=== PATIENT | female | born 1995 | race Caucasian/White ===

== ENCOUNTER 2019-11-17 13:30 | Outpatient (RCR) | payer OTHER, SELFPAY ==
--- NOTE | 2019-11-03 16:32 | PTOPEVAL ---
Thank you for referring Carline Palacio to [facility] [place]Note 2]. Please review, sign, date and return this plan of care LAKHWINDER. Pt referred to therapy due to chronic pes planovalgus deformity with chronic ankle sprains. Initial evaluation performed via telehealth. She demonstrates decreased balance, posture and gait impairments with LE/foot position, and increased pain with walking activities. She would benefit from skilled therapy services to instruct in a HEP, improve functional mobility and decrease pain with daily act. Cont PT 1x/wk x 4-6 wk for on-site and telehealth visits. I agree with and certify that the following plan of care is medically necessary. Referring Physician Date Referring Provider: Dr. Clarissa Díaz MD *PT Outpatient Evaluation Start: 11/03/19 15:31 Freq: Status: Active Protocol: Document 11/03/19 15:32 CAP (Rec: 11/03/19 16:19 CAP [id number]) Therapy Assessment Status Assessment Status Assessment Status Evaluation Outpatient Past Medical History Past Medical History Source of Past Medical History Patient,Recalled from Previous Visit, Confirmed with Patient /Family Respiratory History Hx Asthma Yes Gastrointestinal History Hx Irritable Bowel Yes Hx Other Gastrointestinal Disorders Yes: Gastoparesis Musculoskeletal History Hx Other Musculoskeletal Disorders Yes: multiple Lt ankle surgeries Evaluation Information Problem Diagnosis pes planovalgus right M21.41 Onset Jun 2019 Additional Evaluation Detail she had PT for 6 months for left ankle then surgery for calcaneal osteotomy in 10/30. Subjective Information Pt reports she is walking when Query Text:As Reported By Patient/ her right ankle will twist Family out causing increased pain. States this will happen 3x/wk. This will happen when walking inside, outside or with community mobility. She has a history of her left foot twisting in the past. She has had 3 surgeries on her left foot. States she lacks normal sensation on her left foot. She had glass on her left foot the other day and was unaware until she saw blood. She is wearing Nike shoes with custom inserts that are < 1 year old. But will often wear flip flops for convenience. She has velcro OTS ankle
--- NOTE | 2019-11-17 13:46 | PCPTNOTE ---
Patient did not show up for scheduled appointment this date, clerical staff stated with reminder call patient stated she wanted to do telehealth appointments when called back to schedule those appointment had to leave voicemail which clerical has not heard back from patient.
--- NOTE | 2019-12-06 13:13 | PCPTNOTE ---
Admitting Provider: Attending Provider: PHYSICIAN NOT ON STAFF Patient:Carline Palacio Date of :1995 Discharge Note Patient has not returned for any further treatments since 11/11/2019, therefore she will be discharged at this time. Patient?s initial visit was on 11/03/2019 15:00 and she had a total of 2 visits. The goals have been not been met due to limited visits attended. Thank you for referring this patient to [facility]. Please review, sign, date and return this discharge summary LAKHWINDER. I have been updated about the patient's current status and I agree with discharge from the above service at this time. Referring Physician Date
== END 2019-12-06 15:43 | disposition home or self-care (01) ==
LOC: ANHPT 13:30
DX: M21.41 Flat foot [pes planus] (acquired), right foot (principal)
CPT/HCPCS: 97110; 97161

== ENCOUNTER 2019-11-20 14:10 | Emergency (ER) | payer OTHER, SELFPAY ==
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
[2019-11-20 14:28] VITALS: BP 125/64; PULSE 90; RESP 16; TEMP 37.1
== END 2019-11-20 14:51 | disposition home or self-care (01) ==
PROVIDERS: Emergency Provider Nurse Practitioner Family
DX: L55.0 Sunburn of first degree (principal)
CPT/HCPCS: 99213; G0463

== ENCOUNTER 2019-11-24 16:54 | Emergency (ER) | payer OTHER, SELFPAY ==
[2019-11-24 17:34] VITALS: BP 131/80; PULSE 68; RESP 16; TEMP 36.4; O2SAT 100
--- NOTE | 2019-11-24 17:51 | ED.GENADULT ---
HPI - General Adult General Chief complaint: Skin/Abscess/Foreign Body Stated complaint: sunburn Time Seen by Provider: 11/24/19 17:51 Source: patient and RN notes reviewed Mode of arrival: ambulatory Limitations: no limitations and clinical condition History of Present Illness HPI narrative: 23-year-old female presents with complaints of infected sunburn wound to chest wall for 1 day. Carline says a co-worker told her to go see her doctor because she has an infection to her sunburn area. Complains of tenderness, erythema. Denies or swelling to area. Denies drainage. No streaking, Denies fever or chills. Remains active. LMP, 2 weeks ago. The patient reports she have not been diagnosed with COVID-19. The patient reports she is not waiting for the results of a COVID-19 lab test. The patient reports she do not have fever, chills, weakness, fatigue, myalgia, or facial swelling. The patient reports she do not have a new or worsening cough or shortness of breath. Denies chest pain. The patient reports she do not have any rhinorrhea, congestion, sore throat, nausea, vomiting, abdominal pain, and diarrhea. Tolerating po intake well. Denies concerns for COVID-19 or exposures been home with limited outdoor exposure except for essential household needs, work, and return home. At this time, patient is not suspected of having COVID-19. Some parts of this dictation were generated by voice recognition software and may contain typographical and/or grammatical inaccuracies. Related Data Home Medications Medication Instructions Recorded Confirmed albuterol sulfate 06/12/19 buspirone mg 06/12/19 citalopram mg 06/12/19 budesonide-formoterol [Symbicort] 2 puff INHALATION Q12H 07/07/19 07/07/19 amitriptyline 11/20/19 meloxicam 11/20/19 Allergies Allergy/AdvReac Type Severity Reaction Status Date / Time shrimp Allergy Intermediate HIVES Verified 06/12/19 10:17 gabapentin Allergy Unknown Rash Verified 07/07/19 11:06 Review of Systems Review of Systems: Narrative: CONSTITUTIONAL: Denies fever, chills, sweats. EYES: Denies visual changes, redness, discharge. ENT: Denies rhinorrhea, congestion, sore throat, otalgia. CARDIOVASCULAR: Denies chest pain, palpitations, edema. RESPIRATORY: Denies dyspnea, wheezing, cough GASTROINTESTINAL: Denies abdominal pain, nausea, vomiting, diarrhea. GENITOURINARY: Denies dysuria, hematuria, abnormal discharge SKIN: Complains of infection to chest wall sunburn. Complains of erythema and tenderness. Denies drainage. MUSCULOSKELETAL: Denies acute back pain, joint pain, or myalgia. NEUROLOGIC: Denies numbness or focal weakness. PSYCHIATRIC: Denies anxiety or depression. All other systems reviewed & are unremarkable except as noted in HPI and below. [facility] Past Medical History Medical History (Updated 11/25/19 @ 00:00 by Judy Monge) Anxiety Asthma Depression Gastroparesis Irritable bowel syndrome (IBS) Vertigo Surgical History Surgical History (Updated 11/24/19 @ 18:02 by AURELIO Root) History of dental surgery History of foot surgery LT History of tonsillectomy Family History Family History (Updated 11/24/19 @ 18:03 by AURELIO Root) Grandparent Hypertension Father Unknown family medical history Mother Unknown family medical history Social History Social History (Updated 11/24/19 @ 18:04 by AURELIO Root) Smoking status: Never smoker Second hand tobacco smoke exposure: Yes (fiancee) Alcohol intake: current Substance use: never Occupation/Education: occupation Gender identity (if verbalized by the patient): Female Comments At time of signature, agree with nurse past medical, surgical, social, and family history. There is no relevant family history pertinent to the presenting complaint. Exam Narrative: Exam Narrative: GENERAL: This is a well-nourished, well-developed patient, in no apparent distress. Talks in f
== END 2019-11-24 18:12 | disposition home or self-care (01) ==
PROVIDERS: Emergency Provider Nurse Practitioner Family
DX: L55.9 Sunburn, unspecified (principal); F41.9 Anxiety disorder, unspecified; F32.9 Major depressive disorder, single episode, unspecified; J45.909 Unspecified asthma, uncomplicated; K58.9 Irritable bowel syndrome, unspecified; Z77.22 Contact with and (suspected) exposure to environmental tobacco smoke (acute) (chronic); R03.0 Elevated blood-pressure reading, without diagnosis of hypertension
CPT/HCPCS: 99211; G0463

== ENCOUNTER 2020-07-20 15:28 | Emergency (ER) | payer OTHER, SELFPAY ==
--- NOTE | 2020-07-20 15:40 | ED.GENADULT ---
HPI - General Adult General Chief complaint: Wound/Laceration Stated complaint: Laceration on left hand Time Seen by Provider: 07/20/20 15:40 Source: patient Mode of arrival: ambulatory Limitations: no limitations History of Present Illness HPI narrative: 24-year-old female patient presents to the [facility] with complaints of lacerations of the left index finger from a knife that happened approximately 230 this afternoon. Patient states it bled for about 45 minutes away to come in to be checked because she was not sure if it needed stitches or not. Patient states her last tetanus shot was about 2 years ago. Related Data Home Medications Medication Instructions Recorded Confirmed budesonide-formoterol [Symbicort] INHALATION 07/20/20 buspirone mg 07/20/20 citalopram mg 07/20/20 07/20/20 jose cruz (Zingiber officinalis) 07/20/20 hydrocodone-acetaminophen 07/20/20 montelukast mg 07/20/20 pregabalin 07/20/20 Allergies Allergy/AdvReac Type Severity Reaction Status Date / Time gabapentin Allergy Intermediate Rash Verified 07/20/20 15:30 shrimp Allergy Intermediate HIVES Verified 07/20/20 15:30 Review of Systems Review of Systems: Narrative: CONSTITUTIONAL: Denies fever, chills, or sweats. EYES: Denies visual changes, redness, or discharge. ENT: Denies rhinorrhea, congestion, sore throat, or otalgia. CARDIOVASCULAR: Denies chest pain, palpitations, or edema. RESPIRATORY: Denies cough or dyspnea. GASTROINTESTINAL: Denies abdominal pain, nausea, vomiting, or diarrhea. GENITOURINARY: Denies dysuria or hematuria. SKIN: Denies rash or itching. Positive laceration to left index finger MUSCULOSKELETAL: Denies back pain, joint pain, or myalgia. NEUROLOGIC: Denies headache, numbness, or weakness. PSYCHIATRIC: Denies anxiety or depression. [facility] Past Medical History Medical History Anxiety Asthma Depression Gastroparesis Irritable bowel syndrome (IBS) Vertigo Surgical History Surgical History History of dental surgery History of foot surgery LT History of tonsillectomy Family History Family History Grandparent Hypertension Father Unknown family medical history Mother Unknown family medical history Social History Social History Smoking status: Never smoker Second hand tobacco smoke exposure: Yes (fiancee) Alcohol intake: current Substance use: never Gender identity (if verbalized by the patient): Female Comments At the time of my signature I agree with nursing past medical history, surgical, social, and family history. There is no relevant family history pertinent to the presenting complaint. Exam Narrative: Exam Narrative: GENERAL: Well-appearing, well-nourished, and in no acute distress. HEAD: Normocephalic, atraumatic. EYES: PERRLA and EOMI. ENT: Nares clear, no rhinorrhea or epistaxis. Mucous membranes moist. NECK: Supple. No lymphadenopathy CHEST: Clear to auscultation. No respiratory distress. HEART: Regular rate and rhythm. No murmur heard. Normal peripheral pulses. ABDOMEN: Soft, nontender, nondistended, normal active bowel sounds. EXTREMITIES: Normal range of motion. No edema. SKIN: Warm, dry, no rash. Patient has approximately 1.5 cm superficial abrasion noted to the base of the left index finger. There is no gaping to the wound no active bleeding at this time. Patient has excellent range of motion to the hand and fingers. NEURO: No focal deficits. Alert and oriented x3. Course Vital Signs Vital signs: Vital Signs Temperature 37.1 C 07/20/20 15:51 Pulse Rate 83 07/20/20 15:51 Respiratory Rate 18 07/20/20 15:51 Blood Pressure 125/67 07/20/20 15:51 Pulse Oximetry 100 07/20/20 15:51 Temperature 37.1 C 07/20/20 15:51 Pulse Rate 83 0
[2020-07-20 15:51] VITALS: BP 125/67; PULSE 83; RESP 18; TEMP 37.1; O2SAT 100
== END 2020-07-20 16:08 | disposition home or self-care (01) ==
PROVIDERS: Emergency Provider Nurse Practitioner Family
DX: S60.411A Abrasion of left index finger, initial encounter (principal); W26.0XXA Contact with knife, initial encounter; F41.9 Anxiety disorder, unspecified; J45.909 Unspecified asthma, uncomplicated; F32.9 Major depressive disorder, single episode, unspecified; K31.84 Gastroparesis
CPT/HCPCS: 99212; G0463

== ENCOUNTER 2021-03-03 17:10 | Emergency (ER) | payer OTHER, SELFPAY ==
[2021-03-03 17:25] VITALS: BP 132/67; PULSE 78; RESP 16; TEMP 36.8; O2SAT 100
--- NOTE | 2021-03-03 18:14 | ED.SKABFB ---
HPI - Skin/Abscess/Foreign Bdy General Chief complaint: Skin/Abscess/Foreign Body Stated complaint: Rash Time Seen by Provider: 03/03/21 18:06 Source: patient and RN notes reviewed Mode of arrival: ambulatory Limitations: no limitations History of Present Illness HPI narrative: Patient presents today complaining of a burning rash to the left upper arm, and left posterior hip x2 days 1 area to the right inner wrist that just showed up today. She describes some burning pain and itching. She has tried some Benadryl without relief. MD complaint: rash Related Data Home Medications Medication Instructions Recorded Confirmed budesonide-formoterol [Symbicort] 4.5 inh INHALATION DAILY 07/20/20 07/20/20 buspirone 15 mg PO BID 07/20/20 07/20/20 citalopram 40 mg PO DAILY 07/20/20 07/20/20 jose cruz (Zingiber officinalis) 500 mg PO DAILY 07/20/20 03/03/21 montelukast 10 mg PO DAILY 07/20/20 03/03/21 hydroxyzine HCl 03/03/21 hyoscyamine sulfate mg 03/03/21 prazosin 03/03/21 sertraline mg 03/03/21 trazodone 03/03/21 03/03/21 Allergies Allergy/AdvReac Type Severity Reaction Status Date / Time gabapentin Allergy Intermediate Rash Verified 03/03/21 17:36 shrimp Allergy Intermediate HIVES Verified 03/03/21 17:36 Review of Systems Review of Systems: CONSTITUTIONAL: Denies body aches, fever, chills, or sweats. EYES: Denies visual changes, redness, or discharge. ENT: Denies rhinorrhea, congestion, sore throat, or otalgia. CARDIOVASCULAR: Denies chest pain, palpitations, or edema. RESPIRATORY: Denies cough or dyspnea. GASTROINTESTINAL: Denies abdominal pain, nausea, vomiting, or diarrhea. GENITOURINARY: Denies dysuria or hematuria. SKIN: Denies wounds.+ Pruritic burning rash MUSCULOSKELETAL: Denies back pain, joint pain, or myalgia. NEUROLOGIC: Denies headache, numbness, tingling, or weakness. PSYCH: Denies depression or anxiety. [facility] Past Medical History Medical History Anxiety Asthma Depression Gastroparesis Irritable bowel syndrome (IBS) Vertigo Surgical History Surgical History History of dental surgery History of foot surgery LT History of tonsillectomy Family History Family History Grandparent Hypertension Father Unknown family medical history Mother Unknown family medical history Social History Social History Smoking status: Never smoker Second hand tobacco smoke exposure: Yes (fiancee) Alcohol intake: current Substance use: never Gender identity (if verbalized by the patient): Female Comments At time of signature, I have reviewed and agree with nursing past medical, surgical, social and family history unless otherwise noted. Please see nursing chart for further information. There is no relevant family history pertinent to the presenting complaint Exam Narrative: GENERAL: Well-appearing, well-nourished, and in no acute distress. HEAD: Normocephalic, atraumatic. EYES: EOMI. No redness or drainage. Conjunctivae normal. ENT: Mucous membranes pink and moist. NECK: Normal AROM. CHEST: No respiratory distress. EXTREMITIES: Normal range of motion. No edema. SKIN: Warm, dry. Capillary refill normal. Normal skin turgor. + 3 small erythematous nodules to the left upper arm, 1 to the right inner wrist, and 1 to the left posterior hip, all consistent with allergic reaction insect bites. No signs of infection. NEURO: No focal deficits. Alert and oriented x3. Gait steady. PSYCH: Normal affect. No signs of depression or anxiety. Course Vital Signs Vital signs: Vital Signs Temperature 98.2 F 03/03/21 17:25 Pulse Rate 78 03/03/21 17:25 Respiratory Rate 16 03/03/21 17:25 Blood Pressure 132/67 03/03/21 17:25 Pulse Oximetry 100
== END 2021-03-03 18:35 | disposition home or self-care (01) ==
PROVIDERS: Emergency Provider Nurse Practitioner; PCP Nurse Practitioner Family
DX: S40.862A Insect bite (nonvenomous) of left upper arm, initial encounter (principal); S70.262A Insect bite (nonvenomous), left hip, initial encounter; F41.9 Anxiety disorder, unspecified; F32.9 Major depressive disorder, single episode, unspecified; W57.XXXA Bitten or stung by nonvenomous insect and other nonvenomous arthropods, initial encounter
CPT/HCPCS: 99213; G0463

== ENCOUNTER 2025-04-19 08:14 | Outpatient (CLI) | payer OTHER, SELFPAY | END 2025-04-19 08:15 | disposition home or self-care (01) | PROVIDERS: PCP Nurse Practitioner Family | DX: H69.93 Unspecified Eustachian tube disorder, bilateral (principal); H90.3 Sensorineural hearing loss, bilateral | CPT/HCPCS: 92557; 92567 ==